=== PATIENT | female | born 2005 | race Caucasian/White ===

== ENCOUNTER 2025-09-22 21:53 | Emergency (ER) | payer OTHER, BC ==
[~2025-09-22] VITALS: Ht 175.2 cm; Wt 86.2 kg
[2025-09-23] MEDS ORDERED: ACETAMINOPHEN 325 MG TAB PO ONE (02:30)
== END 2025-09-23 04:23 | disposition home or self-care (01) ==
LOC: ED 21:53
DX: S29.012A Strain of muscle and tendon of back wall of thorax, initial encounter (principal); S09.90XA Unspecified injury of head, initial encounter; Z88.8 Allergy status to other drugs, medicaments and biological substances; Z91.013 Allergy to seafood; V89.0XXA Person injured in unspecified motor-vehicle accident, nontraffic, initial encounter; Y93.I9 Activity, other involving external motion; Y92.488 Other paved roadways as the place of occurrence of the external cause; Y99.8 Other external cause status